=== PATIENT | male | born 1995 | race Caucasian/White ===

== ENCOUNTER 2020-10-30 01:53 | Emergency (ER) | payer BC ==
[~2020-10-30] VITALS: Ht 182.9 cm; Wt 82.0 kg
[2020-10-30] MEDS ORDERED: ACETAMINOPHEN 325MG TABLET PO STA (02:18)
[2020-10-30] MEDS ORDERED: SODIUM CHLORIDE 0.9% 1,000 ML IV ONE (02:30)
[2020-10-30 02:42] LABS: BASOPHILS % 0.6 % (0.0-2.0); EOSINOPHILS % 2.8 % (0.0-5.0); HEMOGLOBIN. 14.7 g/dL (14.0-18.0); LYMPHOCYTES % 40.6 % (20.0-50.0); MEAN CORPUSCULAR HEMOGLOBIN 30.5 pg (28.0-32.0); MEAN CORPUSCULAR VOLUME 89.4 fL (80.0-94.0); MEAN PLATELET VOLUME 9.9 fl (7.4-10.4); MONOCYTES % 6.4 % (2.0-8.0); NEUTROPHILS % 49.6 % (40.0-76.0); PLATELET 200 x1000/uL (130-400); RED BLOOD CELL COUNT 4.81 mill/uL (4.7-6.1)
[2020-10-30 02:50] LABS: PROTHROMBIN TIME 10.5 sec (9.6-11.0)
[2020-10-30 02:54] LABS: CHLORIDE 105 mEq/L (98-107)
[2020-10-30 02:55] LABS: CLARITY URINE CLEAR (CLEAR); COLOR URINE YELLOW (YELLOW); KETONES URINE NEGATIVE (NEGATIVE); LEUKOCYTE ESTERASE URINE NEGATIVE (NEGATIVE); NITRITE URINE NEGATIVE (NEGATIVE); OCCULT BLOOD URINE NEGATIVE (NEGATIVE); PROTEIN URINE NEGATIVE (NEGATIVE); SPECIFIC GRAVITY URINE 1.014 (1.005-1.030)
[2020-10-30] MEDS ORDERED: KETOROLAC 30MG/ML VIAL IV NR (03:45)
[2020-10-30 03:56] VITALS: BP 125/73
== END 2020-10-30 03:55 | disposition home or self-care (01) ==
LOC: ER 01:53 → CANBEDREQ 07:21
DX: R68.83 Chills (without fever) (principal); K59.00 Constipation, unspecified; Z20.822 Contact with and (suspected) exposure to COVID-19
CPT/HCPCS: 36415; 71045; 74176; 80053; 81003; 83605; 84145; 84484; 85025; 85610; 87040; 87086; 93005; 96360; 99285; J7030; Z7610